=== PATIENT | female | born 1995 | race Caucasian/White ===

== ENCOUNTER 2016-10-07 23:10 | Emergency (ER) | payer BC ==
[2016-10-07] MEDS ORDERED: BENADRYL 50 MG/ML IV ONE (23:34)
[2016-10-07] MEDS ORDERED: DILAUDID 1 MG/ML INJECTION IV ONE (23:34)
[2016-10-07] MEDS ORDERED: Sodium Chloride 0.9% 1000 ML 1,000 ML IV STA (23:34)
[2016-10-07] MEDS ORDERED: BENADRYL 50 MG/ML ONE (23:45)
[2016-10-07] MEDS ORDERED: DILAUDID 1 MG/ML INJECTION ONE (23:46)
[2016-10-07] MEDS ORDERED: Sodium Chloride 0.9% 1000 ML 1,000 ML ONE (23:46)
[2016-10-07 23:47] LABS: BASOPHIL % 0.2 % (0.0-0.4); Granulocytes % 62.3 % (36.0-66.0); Lymphocytes % 29.9 % (24.0-44.0); Mean Cell Volume 88.9 fl (78-100); Mean Corpuscular Hemoglobin 29.4 pg (26-32); Monocytes % 5.6 % (0.0-12.0); Platelet Count 157 K/mm3 (150-450); Red Blood Count 4.77 M/mm3 (4.1-5.4); Red Cell Distribution Width 13.4 % (11.5-14.0); White Blood Count 11.2 K/mm3 (4.0-10.5)
[2016-10-07 23:54] LABS: COMPLETE URINE MICROSCOPIC? YES; Collection Type CLEAN CATCH
[2016-10-07 23:55] LABS: Bacteria FEW /HPF (NEGATIVE); Epithelial Cells MODERATE /HPF (FEW)
[2016-10-08 00:07] LABS: ALBUMIN 3.5 g/dL (3.4-5.0); ALKALINE PHOSPHATASE 64 U/L (46-116); ANION GAP 13.3 MEQ/L (5-15); BILIRUBIN,TOTAL 0.2 mg/dL (0.2-1.0); BLOOD UREA NITROGEN 8 mg/dL (9-20); CHLORIDE 106 mEq/L (98-107); Carbon Dioxide 25.3 mEq/L (21-32); Glucose 90 MG/DL (70-110); LIPASE 131 U/L (73-393); Potassium 3.6 mEq/L (3.5-5.1); SGOT/AST 16 U/L (15-37); SGPT/ALT 24 U/L (12-78); SODIUM 141 mEq/L (136-145); Total Protein 6.7 gm/dL (6.4-8.2)
--- NOTE | 2016-10-08 00:17 | ERPHSYRPT ---
- History of Present Illness Time Seen by Provider: 10/07/16 23:25 Historian: patient Patient Subjective Stated Complaint: STATES THAT SHE HAS RIGHT RIB PAIN TO RUQ PAIN X 1 WEEK INTERMITTENTLY BUT TONIGHT IT HAS BEEN PERSISTENT - DENIES OTHER GI SYMPTOMS BUT REPORTS FREQUENCY OF URINATION Triage Nursing Assessment: AMBULATORY TO TREATMENT AREA - STEADY GAIT - MOVES ALL EXTREMITIES WITH EQUAL STRENGTH. ALERT/ORIENTED - PLEASANT AFFECT. SKIN FLUSHED/HOT/DRY - NO RASH/INJURY. RESPS EASY - NON-LABORED Physician History: CC: abd pain Hx: 20 yo patient with right flank/abd pain. One prior episide 2 weeks ago. No investigation. Some nausea. Moderate pain. Normal urination without hematuria. No fever or chlls. Mild cough. Pain is in right upper abdomen. Did not eat today as was working at [employer]. Planned to eat tonite. Timing/Duration: today Quality: aching Severity of Pain-Max: moderate Severity of Pain-Current: moderate Allergies/Adverse Reactions: No Known Drug Allergies Allergy (Unverified 10/07/16 23:17) Hx Tetanus, Diphtheria Vaccination/Date Given: Yes Hx Influenza Vaccination/Date Given: No Hx Pneumococcal Vaccination/Date Given: No Immunizations Up to Date: Yes - Review of Systems Constitutional: No Fever, No Chills Eyes: No Symptoms Ears, Nose, & Throat: No Symptoms Respiratory: No Cough Cardiac: No Chest Pain Abdominal/Gastrointestinal: Abdominal Pain, Nausea, No Vomiting, No Diarrhea Genitourinary Symptoms: No Dysuria, No Hematuria Musculoskeletal: No Back Pain Skin: No Rash Neurological: No Headache All Other Systems: Reviewed and Negative - Past Medical History Pertinent Past Medical History: No - Past Surgical History Past Surgical History: Yes Musculoskeletal: Orthopedic Surgery Other Surgical History: RIGHT ARM REPAIR - Social History Smoking Status: Current every day smoker Exposure to second hand smoke: No Drug Use: none Patient Lives Alone: No - Female History Hx Last Menstrual Period: 2 WEEKS - Nursing Vital Signs Nursing Vital Signs: Initial Vital Signs Temperature 98.8 F Temperature Source Oral Pulse Rate 94 Respiratory Rate 16 Blood Pressure 132/91 Pain Intensity 0 - Physical Exam General Appearance: alert Eye Exam: PERRL/EOMI Ears, Nose, Throat Exam: normal ENT inspection, moist mucous membranes Neck Exam: normal inspection, non-tender, supple Respiratory Exam: normal breath sounds, lungs clear Cardiovascular Exam: regular rate/rhythm Gastrointestinal/Abdomen Exam: soft, tenderness (RUQ with positive álvarez's sign ), No distention Back Exam: normal inspection, normal range of motion Extremity Exam: normal inspection, normal range of motion Neurologic Exam: alert, oriented x 3, cooperative, sensation nml, No motor deficits Skin Exam: warm, dry, No rash SpO2 Interpretation: normal SpO2: 99 Oxygen Delivery: Room Air - Course Nursing assessment & vital signs reviewed: Yes - Radiology Exams AAS X-ray Interpretation: Reviewed by me, Negative Ordered Tests: Active Orders 24 hr Category Date Time Status Clean Catch Urine Specimen STAT Care 10/07/16 23:34 Active IV Insertion STAT Care 10/07/16 23:34 Active NPO (ED) STAT Care 10/07/16 23:34 Active OBSTR/ACUTE ABDOMEN SERIES Stat Exams 10/07/16 23:35 Taken CBC W DIFF Stat Lab 10/07/16 23:42 Completed CMP Stat Lab 10/07/16 23:42 Completed HCG QUALITATIVE,SERUM Stat Lab 10/07/16 23:42 Completed LIPASE Stat Lab 10/07/16 23:42 Completed Lactic Acid Urgent Lab 10/07/16 23:34 Completed UA W/ MICROSCOPIC Stat Lab 10/07/16 23:45 Completed Medication Summary Discontinued Medications Generic Name Dose Route Start Last Admin Trade Name Freq PRN Reason Stop Dose Admin Diphenhydramine HCl 25 mg 10/07/16 23:34 10/07/16 23:52 Benadryl 50 Mg/Ml IV 10/07/16 23:35 25 mg STAT ONE Administration Diphenhydramine HCl Confirm 10/07/16 23:45 Benadryl 50 Mg/Ml Administered 10/07/16 23:46 Dose 50 mg .ROUTE .STK-MED ONE Hydromorphone HCl 1 mg 10/07/16 23:34 10/07/16 23:52 Dilaudid 1 Mg/Ml Injection IV 10/07/16 23:35 1 mg STAT ONE Administration Hydromorphone HCl Confirm 10/07/16 23:46 Dilaudid 1 Mg/Ml Injection Administered 10/07/16 23:47 Dose 1 mg .ROUTE .STK-MED ONE Sodium Chloride 1,000 mls @ 999 mls/hr 10/07/16 23:34 10/07/16 23:52 Sodium Chloride 0.9% 1000 Ml IV 10/08/16 00:34 999 mls/hr .Q1H1M STA Administration Sodium Chloride Confirm 10/07/16 23:46 Sodium Chloride 0.9% 1000 Ml Administered 10/07/16 23:47 Dose 1,000 mls @ ud .ROUTE .STK-MED ONE Lab/Rad Data: Laboratory Result Diagrams 10/07/16 23:42 10/07/16 23:42 Laboratory Results 10/07/16 10/07/16 10/07/16 Range/Units 23:45 23:42 23:42 WBC (4.0-10.5) K/mm3 RBC (4.1-5.4) M/mm3 Hgb (12.0-16.0) gm/dl Hct (35-47) % MCV (78-100) fl MCH (26-32) pg MCHC (32-36) g/dl RDW (11.5-14.0) % Plt Count (150-450) K/mm3 MPV (6-9.5) fl Gran % (36.0-66.0) % Lymphocytes % (24.0-44.0) % Monocytes % (0.0-12.0) % Eosinophils % (0.00-5.0) % Basophils % (0.0-0.4) % Basophils # (0-0.4) Sodium 141 (136-145) mEq/L Potassium 3.6 (3.5-5.1) mEq/L Chloride 106 (98-107) mEq/L Carbon Dioxide 25.3 (21-32) mEq/L Anion Gap 13.3 (5-15) MEQ/L BUN 8 L (9-20) mg/dL Creatinine 0.96 (0.55-1.30) mg/dl Estimated GFR > 60 ML/MIN Glucose 90 (70-110) MG/DL Lactic Acid (0.4-2.0) Calcium 8.5 (8.5-10.1) mg/dL Total Bilirubin 0.2 (0.2-1.0) mg/dL AST 16 (15-37) U/L ALT 24 (12-78) U/L Alkaline Phosphatase 64 (46-116) U/L Serum Total Protein 6.7 (6.4-8.2) gm/dL Albumin 3.5 (3.4-5.0) g/dL Lipase 131 (73-393) U/L Serum , Qual NEGATIVE (Negative) Ur Collection Type CLEAN CATCH Urine Color YELLOW (YELLOW) Urine Appearance CLEAR (CLEAR) Urine pH 7.0 (5-6) Ur Specific [place] 1.010 (1.005-1.025) Urine Protein NEGATIVE (Negative) Urine Glucose (UA) NEGATIVE (NEGATIVE) mg/dL Urine Ketones NEGATIVE (NEGATIVE) Urine Nitrite NEGATIVE (NEGATIVE) Urine Bilirubin NEGATIVE (NEGATIVE) Urine Urobilinogen 0.2 (0-1) mg/dL Urine WBC (Auto) SMALL (NEGATIVE) Urine RBC (Auto) NEGATIVE (0-5) Ge/ul Urine Microscopic WBC 2-5 (0-5) /HPF Ur Epithelial Cells MODERATE (FEW) /HPF Urine Bacteria FEW (NEGATIVE) /HPF Specimen Received 10/07/16:2345 10/07/16 10/07/16 Range/Units 23:42 23:34 WBC 11.2 H (4.0-10.5) K/mm3 RBC 4.77 (4.1-5.4) M/mm3 Hgb 14.0 (12.0-16.0) gm/dl Hct 42.4 (35-47) % MCV 88.9 (78-100) fl MCH 29.4 (26-32) pg MCHC 33.0 (32-36) g/dl RDW 13.4 (11.5-14.0) % Plt Count 157 (150-450) K/mm3 MPV 12.0 H (6-9.5) fl Gran % 62.3 (36.0-66.0) % Lymphocytes % 29.9 (24.0-44.0) % Monocytes % 5.6 (0.0-12.0) % Eosinophils % 2.0 (0.00-5.0) % Basophils % 0.2 (0.0-0.4) % Basophils # 0.02 (0-0.4) Sodium (136-145) mEq/L Potassium (3.5-5.1) mEq/L Chloride (98-107) mEq/L Carbon Dioxide (21-32) mEq/L Anion Gap (5-15) MEQ/L BUN (9-20) mg/dL Creatinine (0.55-1.30) mg/dl Estimated GFR ML/MIN Glucose (70-110) MG/DL Lactic Acid 0.8 (0.4-2.0) Calcium (8.5-10.1) mg/dL Total Bilirubin (0.2-1.0) mg/dL AST (15-37) U/L ALT (12-78) U/L Alkaline Phosphatase (46-116) U/L Serum Total Protein (6.4-8.2) gm/dL Albumin (3.4-5.0) g/dL Lipase (73-393) U/L Serum , Qual (Negative) Ur Collection Type Urine Color (YELLOW) Urine Appearance (CLEAR) Urine pH (5-6) Ur Specific [place] (1.005-1.025) Urine Protein (Negative) Urine Glucose (UA) (NEGATIVE) mg/dL Urine Ketones (NEGATIVE) Urine Nitrite (NEGATIVE) Urine Bilirubin (NEGATIVE) Urine Urobilinogen (0-1) mg/dL Urine WBC (Auto) (NEGATIVE) Urine RBC (Auto) (0-5) Ge/ul Urine Microscopic WBC (0-5) /HPF Ur Epithelial Cells (FEW) /HPF Urine Bacteria (NEGATIVE) /HPF Specimen Received - Progress Progress Note: 10/08/16 00:16 This appears to be biliary colic. Will get plain xray. Discussed risk and benefits of CT. She will likely need sonogram eventually. Will check labs. 10/08/16 01:00 Pain free. Abd soft and NT. Biliary colic instr given. Will release with followup. Counseled pt/family regarding: lab results, diagnosis, need for follow-up, rad results - Departure Time of Disposition: 01:00 Departure Disposition: Home Clinical Impression: RUQ abdominal pain Condition: Stable Critical Care Time: No Referrals: FLAVIO RO [Primary Care Provider] - Instructions: Abdominal Pain-Adult, General Gallbladder Conditions Additional Instructions: [place] diet with no fatty, greasy, spicy foods. Return for worsened or changed pain, fever, recurrent vomiting or concerns. Tylenol as directed for discomfort. Rx zofran. Rx pepcid. Followup with Dr Ro Sunday or Sunday. No driving tonite. Prescriptions: Ondansetron [Zofran Odt] 4 mg PO Q6HPRN PRN #10 tab.rapdis PRN Reason: Nausea/Vomiting Famotidine 20 mg [Pepcid 20 MG] 1 tab PO BID #30 tablet
[2016-10-08 00:40] VITALS: BP 132/91; PULSE 94
[2016-10-08 01:03] VITALS: O2SAT 99
--- NOTE | 2016-10-08 09:42 | XRAY ---
Indication: Right upper quadrant pain. Comparison: None 2 views of the abdomen nonacute and nonobstructed. Solid organs and osseous structures unremarkable. Single frontal chest demonstrates normal heart, lungs, and bony thorax with a few calcified granulomas. Impression: Negative abdomen. Nonacute 1 view chest.
== END 2016-10-08 01:13 | disposition home or self-care (01) ==
LOC: ED 23:10
DX: R10.11 Right upper quadrant pain (principal); R11.0 Nausea
CPT/HCPCS: 36000; 36415; 74022; 80053; 81000; 83605; 83690; 84703; 85025; 96360; 96374; 96375; 99283; J1170; J1200

== ENCOUNTER 2016-11-27 10:17 | Day surgery (SDC) | payer BC ==
--- NOTE | 2016-11-25 14:45 | HP ---
HISTORY OF PRESENT ILLNESS: The patient is a 21 year-old, right upper quadrant pain since early October, worse with greasy and spicy foods, nausea on attack, no vomiting, no jaundice, an episode of constipation resolved now, increased frequency of bowel movements. Ultrasound showed sludge. PAST MEDICAL HISTORY: Denies chronic illnesses. MEDICATIONS: control pills. PAST SURGICAL HISTORY: She had arm surgery in the past. FAMILY HISTORY: Negative. ALLERGIES: No known drug allergies. SOCIAL HISTORY: Half a pack a day smoker, denies alcohol abuse. REVIEW OF SYSTEMS: Twelve systems reviewed, per pre-admission assessment, and questionnaire. No chest pain or palpitations. Otherwise pertinent present as noted above. PHYSICAL EXAMINATION: GENERAL: No acute distress. HEENT: Sclerae nonicteric. NECK: No JVD. CHEST: Normal excursions. Nonlabored breathing. CARDIOVASCULAR: Regular rate and rhythm. ABDOMEN: Soft, some mild tenderness right upper quadrant. No peritoneal signs. EXTREMITIES: No significant edema. NEUROLOGICAL: Alert, moving extremities grossly symmetrically, no gross motor deficits noted. IMPRESSION: Symptomatic biliary colic, symptomatic biliary sludge, probably chronic cholecystitis. [place] the patient would benefit from cholecystectomy. The risks and benefits explained in detail not limited to bleeding, infection, risk of trocar injury or hernia, small risk of bowel, bladder or blood vessel injury, small risk of bile leak, bile duct injury, retained stone or sludge possibly requiring further procedure either open or ERCP, general risk of anesthesia, DVT, PE, pneumonia, perioperative risk of aches, pains, bloating, constipation and/or loose stools, possibly chronic in nature. She understands all the above, agrees to plan of procedure. We will proceed with lap cholecystectomy, possible open as an outpatient. Pamphlet explaining the procedure in detail, but not limited to, if this failed to improve her symptoms she may need further workup, testing, endoscopy or other studies or procedures. She understands, agrees with plan of procedure. We will proceed with lap della, possible open as an outpatient. General risk of trocar injury or hernia, small risk of bile leak, bile duct injury, retained stone or sludge possibly requiring further procedures, open or ERCP.
[~2016-11-27 10:17] MED LIST: DILAUDID 2 MG INJECTION IV ONE; DIPRIVAN 200 MG/20 ML IV ONE; Decadron 4 MG INJ IV ONE; Lactated Ringers 1,000 ML IV ONE; Lactated Ringers 1,000 ML IV SCH; MEFOXIN 2 GM PREMIX** 50 ML IV ONE; Pepcid 20 MG VIAL IV ONE; Quelicin Fliptop 200 MG/10 ML IJ ONE; SUBLIMAZE 100 MCG/2 ML IV ONE; Sensorcaine 0.25% 10 ML ONE; TORAdol 30 mg Injection IJ ONE; Zemuron 100 MG/10 ML IJ ONE; Zofran 4 MG/2 ML VIAL IV ONE
[2016-11-27] MEDS ORDERED: SUBLIMAZE 100 MCG/2 ML ONE (12:17)
[2016-11-27 14:06] VITALS: BP 111/69; PULSE 70; O2SAT 99
--- NOTE | 2016-11-28 09:44 | OP ---
SURGERY DATE/TIME: 11/27/2016 1117 PREOPERATIVE DIAGNOSES: 1) Symptomatic biliary colic, 2) Symptomatic biliary gallbladder sludge. 3) Chronic cholecystitis. POSTOPERATIVE DIAGNOSES: 1) Symptomatic biliary colic, 2) Symptomatic biliary gallbladder sludge. 3) Chronic cholecystitis. PROCEDURE: Laparoscopic cholecystectomy. SURGEON: Dr. Pk Jolley. ANESTHESIA: General. ESTIMATED BLOOD LOSS: Minimal. INDICATIONS: As noted above. Risks and benefits explained in detail but not limited to and consent was obtained. DESCRIPTION OF PROCEDURE AND FINDINGS: The patient was taken to the OR. General anesthesia was induced. Abdomen prepped and draped in the usual sterile fashion. After official time out and no disagreement with planned procedure, a mid abdominal incision made. Fascia grasped and pulled upward. Veress needle inserted and tested with saline. Pneumoperitoneum accomplished insufflating opening pressure of 0-15. A 5 mm bladeless port and 11 mm bladeless port and 5 mm lens were inserted without difficulty. There was no evidence of any intra-abdominal injury secondary to trocar insertion. Two - 5 mm right upper quadrant ports were placed and a 5 mm epigastric port. The gallbladder is grasped and retracted over the edge of the liver and dissection carried posterior, lateral to anterior fashion. It took quite some time given the extensive inflammatory reaction. Slowly and carefully dissected from posterior, lateral to anterior fashion. The main cystic artery was clipped x3 and divided in the liver bed. Gallbladder slowly and carefully skeletonized until a critical view was obtained both anteriorly and posteriorly. Once this was accomplished cystic duct was then clipped x3 and divided in the usual fashion after critical view had been obtained anteriorly and posteriorly. The gallbladder slowly and carefully dissected free from its dense almost concrete attachments to the liver bed staying directly on the gallbladder wall clipping additional side branches off the cystic artery as necessary. Just prior to releasing from final attachments to the anterior edge of the liver the liver bed re-inspected. Clips noted to be in place in cystic duct and cystic artery stumps. There were no signs of any active bleeding or bile leakage. It was felt there was no benefit from drain placement. The gallbladder was released from final attachments to the anterior edge of the liver. It was pulled out the umbilical port, decompressed and pulled free and passed off. The port was replaced. Copious amount of irrigation accomplished lateral to the liver and subhepatic space irrigating until clear. The liver bed re-inspected. Clips noted to be in place in cystic duct and cystic artery stumps. There were no signs of any active bleeding or bile leakage. It was felt there was no benefit from drain placement. At this point the 10/11 port site at the umbilical area was closed under direct vision with the camera with puncture closure device #1 Vicryl. Pneumoperitoneum decompressed. The wound was irrigated out. Skin incision closed with 4-0 Vicryl. Steri-Strips and sterile dressing applied. 0.25% Marcaine local injected along the skin incision fascial defect. The patient tolerated the procedure well. There were no immediate complications. There was no family available to discuss the findings with at this time.
== END 2016-11-27 13:40 | disposition home or self-care (01) ==
LOC: SDC 10:17
PROVIDERS: ATTEND Surgery
PROC: 0FT44ZZ Resection of Gallbladder, Percutaneous Endoscopic Approach (ICD-10-PCS; principal; 2016-11-27)
DX: K80.10 Calculus of gallbladder with chronic cholecystitis without obstruction (principal); Z72.0 Tobacco use
CPT/HCPCS: 00790; 36415; 84703; 88304; J0330; J0694; J1100; J1170; J1885; J2405; J2704; J3010

== ENCOUNTER 2018-06-11 19:52 | Emergency (ER) | payer BC ==
[2018-06-11] MEDS ORDERED: XYLOCAINE 1% HCL 20 ML MDV IJ ONE (20:27)
[2018-06-11] MEDS ORDERED: BACIGUENT PACKET TP ONE (20:27)
[2018-06-11 20:29] VITALS: O2SAT 99
--- NOTE | 2018-06-11 20:31 | ERPHSYRPT ---
- History of Present Illness Time Seen by Provider: 06/11/18 20:28 Source: patient Exam Limitations: no limitations Physician History: 22-year-old white female arrives with complaint of laceration to her right anterior thigh symptoms since just prior to arrival. Patient states she was struck with a broken dish at work. She denies any other complaints. Patient does states she is . Past medical history is negative past surgical history his right arm repair Patient does not know if she is up-to-date on her tetanus. Timing/Duration: today Severity: mild Location: other (right thigh) Possible Causes: other (laceration) Associated Symptoms: denies symptoms Allergies/Adverse Reactions: No Known Drug Allergies Allergy (Verified 06/11/18 20:29) Home Medications: Vits W-Ca,Fe,FA(<1Mg) [] 1 each PO DAILY 06/11/18 [History] Hx Tetanus, Diphtheria Vaccination/Date Given: Yes Hx Influenza Vaccination/Date Given: No Hx Pneumococcal Vaccination/Date Given: No - Review of Systems Constitutional: No Fever, No Chills Eyes: No Symptoms Ears, Nose, & Throat: No Symptoms Respiratory: No Cough, No Dyspnea Cardiac: No Chest Pain, No Edema, No Syncope Abdominal/Gastrointestinal: No Abdominal Pain, No Nausea, No Vomiting, No Diarrhea Genitourinary Symptoms: (12 week ) Musculoskeletal: No Back Pain, No Neck Pain Skin: Other (2 cm laceration right anterior thigh) Neurological: No Dizziness, No Focal Weakness, No Sensory Changes Psychological: No Symptoms Endocrine: No Symptoms All Other Systems: Reviewed and Negative - Past Medical History Pertinent Past Medical History: No Neurological History: No Pertinent History ENT History: No Pertinent History Cardiac History: No Pertinent History Respiratory History: No Pertinent History Endocrine Medical History: No Pertinent History Musculoskeletal History: No Pertinent History GI Medical History: No Pertinent History History: No Pertinent History Psycho-Social History: No Pertinent History Female Reproductive Disorders: No Pertinent History - Past Surgical History Past Surgical History: Yes Neuro Surgical History: No Pertinent History Cardiac: No Pertinent History Respiratory: No Pertinent History Gastrointestinal: No Pertinent History Genitourinary: No Pertinent History Musculoskeletal: Other Female Surgical History: No Pertinent History Other Surgical History: surgery on R arm - Social History Smoking Status: Current every day smoker Exposure to second hand smoke: Yes Drug Use: none Patient Lives Alone: No - Nursing Vital Signs Nursing Vital Signs: Initial Vital Signs Temperature 98.6 F 06/11/18 20:15 Pulse Rate 87 06/11/18 20:15 Respiratory Rate 16 06/11/18 20:15 Blood Pressure 116/75 06/11/18 20:15 O2 Sat by Pulse Oximetry 99 06/11/18 20:15 Pain Scale Pain Intensity 4 - Physical Exam General Appearance: no apparent distress, alert Eye Exam: PERRL/EOMI, eyes nml inspection Ears, Nose, Throat Exam: normal ENT inspection, pharynx normal, moist mucous membranes Neck Exam: normal inspection, non-tender, supple, full range of motion Respiratory Exam: normal breath sounds, lungs clear, No respiratory distress Cardiovascular Exam: regular rate/rhythm, normal heart sounds Gastrointestinal/Abdomen Exam: soft, mass, No tenderness Back Exam: normal inspection, normal range of motion, No CVA tenderness, No vertebral tenderness Extremity Exam: normal inspection, normal range of motion Neurologic Exam: alert, oriented x 3, cooperative, senior economist II-XII nml as tested, normal mood/affect, sensation nml, No motor deficits Skin Exam: laceration (2 cm laceration right anterior thigh) SpO2 Interpretation: normal (99%) - Course Nursing assessment & vital signs reviewed: Yes Ordered Tests: Active Orders 24 hr Category Date Time Status Prepare for Sutures STAT Care 06/11/18 20:27 Active Sutures STAT Care 06/11/18 20:28 Active Wound Care STAT Care 06/11/18 20:27 Active Medication Summary Discontinued Medications Generic Name Dose Route Start Last Admin Trade Name Freq PRN Reason Stop Dose Admin Bacitracin Zinc 0.9 gm 06/11/18 20:27 Baciguent Packet TP 06/11/18 20:28 STAT ONE Bacitracin Zinc Confirm 06/11/18 20:50 Baciguent Packet Administered 06/11/18 20:51 Dose 1 gm .ROUTE .STK-MED ONE Diphtheria/Tetanus/Acell Pertussis 0.5 ml 06/11/18 20:47 Adacel Vial IM 06/11/18 20:48 .ONCE ONE Diphtheria/Tetanus/Acell Pertussis Confirm 06/11/18 20:50 Adacel Vial Administered 06/11/18 20:51 Dose 0.5 ml IM .STK-MED ONE Lidocaine HCl 5 ml 06/11/18 20:27 Xylocaine 1% Hcl 20 Ml Mdv IJ 06/11/18 20:28 STAT ONE Lidocaine HCl Confirm 06/11/18 20:50 Xylocaine 1% Hcl 20 Ml Mdv Administered 06/11/18 20:51 Dose 5 ml .ROUTE .STK-MED ONE - Progress Progress: improved Progress Note: 06/11/18 20:48 22-year-old white female arrives with complaint of laceration to her right anterior thigh secondary to a broken dish at work. Patient without any other complaints. Patient is with 12 week estimated gestational age she states she is not sure about her tetanus status. Laceration repair 2 cm right anterior thigh, Laceration sterilely prepped and draped inspect it for foreign bodies none are found, laceration anesthetized with 1% lidocaine, Laceration sutured using 3 5. 0 Ethilon sutures interrupted. Bacitracin is applied. DTaP updated. - Departure Time of Disposition: 20:49 Departure Disposition: Home Clinical Impression: Laceration of right thigh Qualifiers: Encounter type: initial encounter Qualified Code(s): S71.111A - Laceration without foreign body, right thigh, initial encounter Condition: Fair Critical Care Time: No Referrals: DRU DIAZ MD [Primary Care Provider] - Instructions: Laceration Repair With [employer] (DC) Additional Instructions: Return home. Keep area clean and dry. Bacitracin to area until healed. Sutures out in 7-10 days. Follow-up with your family doctor or return if signs of infection or problems. Return for acute distress or for severe symptoms.
[2018-06-11] MEDS ORDERED: Adacel Vial IM ONE ×2 (20:47→20:50)
[2018-06-11] MEDS ORDERED: XYLOCAINE 1% HCL 20 ML MDV ONE (20:50)
[2018-06-11] MEDS ORDERED: BACIGUENT PACKET ONE (20:50)
[2018-06-11 21:19] VITALS: BP 116/74; PULSE 74
== END 2018-06-11 21:17 | disposition home or self-care (01) ==
LOC: ED 19:52
PROC: 0HQHXZZ Repair Right Upper Leg Skin, External Approach (ICD-10-PCS; principal; 2018-06-11)
DX: S71.111A Laceration without foreign body, right thigh, initial encounter (principal); W25.XXXA Contact with sharp glass, initial encounter; Y93.G3 Activity, cooking and baking; Y92.511 Restaurant or cafe as the place of occurrence of the external cause; Y99.0 Civilian activity done for income or pay; Z33.1 Pregnant state, incidental
CPT/HCPCS: 12001; 90471; 90715; 96372; 99284; A9270-GY

== ENCOUNTER 2018-09-02 20:18 | Observation (INO) | payer BC ==
[2018-09-02 20:50] VITALS: BP 108/56; PULSE 88
[2018-09-02 21:15] LABS: Amphetamine,Urine NEGATIVE (NEGATIVE); Barbiturate,Urine NEGATIVE (NEGATIVE); Benzodiazepine,Urine NEGATIVE (NEGATIVE); Cocaine,Urine NEGATIVE (NEGATIVE); Methadone,Urine NEGATIVE (NEGATIVE); Opiate,Urine NEGATIVE (NEGATIVE); PCP,Urine NEGATIVE (NEGATIVE); THC,Urine POSITIVE (NEGATIVE)
== END 2018-09-02 21:45 | disposition home or self-care (01) ==
LOC: OB 20:18
PROVIDERS: ADMIT Family Medicine; ATTEND Family Medicine
DX: Z34.02 Encounter for supervision of normal first pregnancy, second trimester (principal)
CPT/HCPCS: 80307; 81003; G0378

== ENCOUNTER 2018-11-13 17:00 | Observation (INO) | payer BC ==
[2018-11-13 17:38] VITALS: BP 156/67; PULSE 116
[2018-11-13 17:45] LABS: Amphetamine,Urine NEGATIVE (NEGATIVE); Barbiturate,Urine NEGATIVE (NEGATIVE); Benzodiazepine,Urine NEGATIVE (NEGATIVE); Cocaine,Urine NEGATIVE (NEGATIVE); Methadone,Urine NEGATIVE (NEGATIVE); Opiate,Urine NEGATIVE (NEGATIVE); PCP,Urine NEGATIVE (NEGATIVE); THC,Urine POSITIVE (NEGATIVE)
[2018-11-13 18:10] LABS: Appearance CLEAR (CLEAR); Bilirubin NEGATIVE (NEGATIVE); Blood NEGATIVE Ery/ul (0-5); Epithelial Cells RARE /HPF (FEW); Glucose NEGATIVE (NEGATIVE); Ketones NEGATIVE (NEGATIVE); Leukocyte Esterase MODERATE (NEGATIVE); Mucus SLIGHT /HPF (NEGATIVE); Nitrite NEGATIVE (NEGATIVE); Protein,Urine Dip NEGATIVE (Negative); Urobilinogen NEGATIVE mg/dL (0-1)
[2018-11-13] MEDS ORDERED: Lactated Ringers 1,000 ML IV ONE ×4 (18:42→20:33)
[2018-11-13] MEDS ORDERED: BRETHINE 1 MG/ML SQ ONE ×2 (20:29→22:19)
[2018-11-13] MEDS ORDERED: BRETHINE 1 MG/ML ONE ×2 (20:33→22:18)
[2018-11-13] MEDS ORDERED: KEFLEX 500 MG PO ONE (21:05)
[2018-11-13] MEDS ORDERED: KEFLEX 500 MG ONE (21:08)
== END 2018-11-14 00:48 | disposition home or self-care (01) ==
LOC: OB 17:00 → UNDOADMOB 17:00 → UNDODISOB 11-14 00:48
PROVIDERS: ADMIT Family Medicine; ATTEND Family Medicine
DX: Z34.03 Encounter for supervision of normal first pregnancy, third trimester (principal)
CPT/HCPCS: 80307; 81001; 87086; G0378; A9270-GY

== ENCOUNTER 2018-12-16 02:59 | Inpatient (IN) | payer BC ==
[2018-12-17 02:24] LABS: Amphetamine,Urine NEGATIVE (NEGATIVE); Barbiturate,Urine NEGATIVE (NEGATIVE); Benzodiazepine,Urine NEGATIVE (NEGATIVE); Cocaine,Urine NEGATIVE (NEGATIVE); Methadone,Urine NEGATIVE (NEGATIVE); Opiate,Urine NEGATIVE (NEGATIVE); PCP,Urine NEGATIVE (NEGATIVE); THC,Urine POSITIVE (NEGATIVE)
[2018-12-17] MEDS ORDERED: TYLENOL EXTRA STRENGTH 500 MG PO PRN (02:57)
[2018-12-17] MEDS ORDERED: XYLOCAINE 1% HCL 20 ML MDV IJ PRN (02:57)
[2018-12-17] MEDS ORDERED: PITOCIN 30 UNITS/ LR 500 ML 500 ML IV SCH (03:00)
[2018-12-17 03:46] LABS: BASOPHIL % 0.2 % (0.0-0.4); Basophil (Absolute #) 0.02 (0-0.4); Eosinophil % 0.4 % (0.00-5.0); Eosinophil (Absolute #) 0.04 (0-0.5); Granulocyte Absolute (ANC) 7.97 (1.4-6.9); Granulocytes % 72.6 % (36.0-66.0); Hematocrit 40.4 % (35-47); Hemoglobin 13.6 gm/dl (12.0-16.0); Lymphocytes % 20.1 % (24.0-44.0); Mean Cell Volume 89.8 fl (78-100); Mean Corpuscular Hemoglobin 30.2 pg (26-32); Mean Corpuscular Hgb Concent. 33.7 g/dl (32-36); Mean Platelet Volume 12.8 fl (6-9.5); Monocyte (Absolute #) 0.73 (0.0-1.3); Monocytes % 6.7 % (0.0-12.0); Platelet Count 145 K/mm3 (150-450); Red Cell Distribution Width 14.2 % (11.5-14.0)
[2018-12-17] MEDS: Lactated Ringers 1,000 ML IV SCH ×3 (05:40→22:14)
[2018-12-17] MEDS ORDERED: Ephedrine Sulfate 50 MG/ML IV PRN (05:46)
[2018-12-17] MEDS ORDERED: Lactated Ringers 1,000 ML IV ONE ×2 (05:46→10:28)
[2018-12-17] MEDS ORDERED: OB EPIDURAL NAROPIN/SUFENTANIL IN NACL EPIDURAL PRN (05:46)
[2018-12-17] MEDS ORDERED: BICITRA 30 ML CUP PO SCH (10:15)
[2018-12-17] MEDS ORDERED: Pepcid 20 MG VIAL IV SCH (10:15)
[2018-12-17] MEDS ORDERED: Reglan 10 MG/2 ML IV SCH (10:15)
[2018-12-17 10:23] LABS: Hematocrit 39.4 % (35-47); Mean Cell Volume 91.8 fl (78-100); Mean Corpuscular Hemoglobin 30.3 pg (26-32); Mean Platelet Volume 12.5 fl (6-9.5); Platelet Count 133 K/mm3 (150-450); Red Blood Count 4.29 M/mm3 (4.1-5.4); Red Cell Distribution Width 14.4 % (11.5-14.0); White Blood Count 10.5 K/mm3 (4.0-10.5)
[2018-12-17] MEDS ORDERED: KEFZOL 1 GM ONE (10:28)
[2018-12-17] MEDS ORDERED: CEFAZOLIN 2 GM-D5W BAG** 2 GM/50 ML ML IV SCH (10:30)
[2018-12-17 10:31] LABS: INR 1.01 (0.8-3.0); PROTIME 11.7 SECONDS (9.95-12.35)
[2018-12-17 10:33] LABS: PTT 26.3 SECONDS (25.3-37.0)
[2018-12-17 11:05] LABS: ABO TYPING A; Antibody Screen NEGATIVE (NEGATIVE); RH TYPING POSITIVE
--- NOTE | 2018-12-17 12:36 | XRAY ---
Indication: Cough. Flu symptoms. Comparison: October 08, 2016. Portable chest again demonstrates normal heart and lungs. Bony thorax intact. No new/acute findings.
[2018-12-17 13:41] LABS: Appearance CLEAR (CLEAR); Bilirubin NEGATIVE (NEGATIVE); Blood MODERATE Ery/ul (0-5); Epithelial Cells RARE /HPF (FEW); Glucose NEGATIVE (NEGATIVE); Ketones SMALL (NEGATIVE); Leukocyte Esterase NEGATIVE (NEGATIVE); Mucus SLIGHT /HPF (NEGATIVE); Nitrite NEGATIVE (NEGATIVE); Protein,Urine Dip NEGATIVE (Negative); RBC 26-50 /HPF (0-2); Specific Gravity 1.008 (1.005-1.025); Urobilinogen NEGATIVE mg/dL (0-1); WBC 0-2 /HPF (0-5)
[2018-12-17] MEDS ORDERED: LANSINOH 40 GM TOP PRN (13:44)
[2018-12-17] MEDS ORDERED: Anucort-HC SUPPOSITORY PR PRN (13:44)
[2018-12-17] MEDS ORDERED: CORTISONE 1% CREAM TP PRN (13:44)
[2018-12-17] MEDS ORDERED: Dulcolax 10 MG SUPP PR PRN (13:44)
[2018-12-17] MEDS ORDERED: TUCKS TP PRN (13:44)
[2018-12-17] MEDS ORDERED: Mylicon 80MG PO PRN (13:44)
[2018-12-17] MEDS ORDERED: DEMEROL 50 MG IV PRN (13:47)
[2018-12-17] MEDS ORDERED: PERCOCET TABLET 5/325MG PO PRN (13:47)
[2018-12-17] MEDS ORDERED: Zofran 4 MG/2 ML VIAL IV PRN (13:47)
[2018-12-17] MEDS ORDERED: Nubain 10 MG/ML IV PRN (13:47)
[2018-12-17] MEDS ORDERED: Narcan 0.4 MG/ML IV PRN (13:47)
[2018-12-17] MEDS ORDERED: BENADRYL 50 MG/ML IV PRN (13:47)
[2018-12-17] MEDS ORDERED: CLARITIN 10 MG PO PRN (13:47)
[2018-12-17] MEDS ORDERED: MORPHINE SULFATE 2 MG INJ IV PRN (13:47)
[2018-12-17] MEDS ORDERED: HOLD NARCOTIC ANALGESICS AND SEDATIVES X24 HR MC PRN (13:47)
[2018-12-17 13:53] LABS: Amphetamine,Urine NEGATIVE (NEGATIVE); Barbiturate,Urine NEGATIVE (NEGATIVE); Benzodiazepine,Urine NEGATIVE (NEGATIVE); Cocaine,Urine NEGATIVE (NEGATIVE); Methadone,Urine NEGATIVE (NEGATIVE); Opiate,Urine NEGATIVE (NEGATIVE); PCP,Urine NEGATIVE (NEGATIVE); THC,Urine POSITIVE (NEGATIVE)
[2018-12-17] MEDS ORDERED: Dextrose 5%-Lr IV Solution 1000 ML 1,000 ML IV SCH (14:00)
--- NOTE | 2018-12-17 14:21 | OP ---
SURGERY DATE/TIME: 12/17/2018 1033 PREOPERATIVE DIAGNOSES: 1) Nonreassuring heart tones. 2) Term intrauterine in labor. POSTOPERATIVE DIAGNOSES: 1) Nonreassuring heart tones. 2) Term intrauterine in labor. PROCEDURE: Primary low transverse section. SURGEON: Dane Lynn M.D. ANESTHESIA: Epidural by Pk Cunningham CRNA. ESTIMATED BLOOD LOSS: 400 cc. IV FLUIDS: 2 liters of Crystalloid. URINE OUTPUT: 300 cc clear straw-colored urine. DESCRIPTION OF PROCEDURE: After informed written consent was obtained, the patient was taken to the OR. She had previously placed laboring epidural dosed for section and was prepped and draped in the usual sterile fashion. Adequate level of anesthesia was assessed and a low transverse skin incision was made by knife and carried down to the subcutaneous fat to the level of the fascia. The fascia was nicked on both sides of the midline and extended in horizontal fashion using curved Owen scissors. The superior free edge was grasped with Zackery clamps and the underlying rectus muscles were dissected free. The same was repeated inferiorly. The peritoneal cavity was opened in horizontal orientation. A bladder flap was created and then reflected over the lower uterine segment. Horizontal uterine incision was made by knife and carried down to the level of the amniotic membranes which were carefully artificially ruptured. Thin, meconium stained fluid was encountered. A viable male infant was delivered from the vertex presentation. There was a loose nuchal x1 reduced. The cord was clamped and cut then he was handed off to the awaiting nursery team after oropharynx and nares were bulb suctioned free and again he had a strong cry spontaneously upon delivery. The placenta was manually extracted and the uterus exteriorized and the uterine cavity was sponge curetted clean with lap sponge. Next, the uterine incision was closed with #1 chromic in a running locked fashion. Good closure and good hemostasis were achieved. Posterior cul-de-sac was wiped free of blood and clot. The uterus was returned to the peritoneal cavity. The lateral gutters were wiped free of blood and clot. The uterine incision was inspected and noted to have adequate closure with good hemostasis. Next, the fascia was closed with 0 Vicryl in a running fashion with good closure and good hemostasis achieved. The subcutaneous fat was irrigated with warm, sterile saline and any areas of bleeding were cauterized with electrocautery. Finally, the skin layer was closed with 4-0 undyed Vicryl in a running subcuticular fashion. Steri-Strips and occlusive dressing were placed over the incision and the patient was transferred to the recovery room in good condition.
[2018-12-17] MEDS: Colace 100 MG PO SCH (22:13)
[2018-12-18 06:04] LABS: BASOPHIL % 0.1 % (0.0-0.4); Basophil (Absolute #) 0.01 (0-0.4); Eosinophil % 0.3 % (0.00-5.0); Eosinophil (Absolute #) 0.03 (0-0.5); Granulocyte Absolute (ANC) 7.71 (1.4-6.9); Granulocytes % 69.6 % (36.0-66.0); Hematocrit 34.2 % (35-47); Hemoglobin 11.1 gm/dl (12.0-16.0); Lymphocytes % 22.6 % (24.0-44.0); Mean Cell Volume 91.9 fl (78-100); Mean Corpuscular Hemoglobin 29.8 pg (26-32); Mean Corpuscular Hgb Concent. 32.5 g/dl (32-36); Mean Platelet Volume 12.6 fl (6-9.5); Monocyte (Absolute #) 0.82 (0.0-1.3); Monocytes % 7.4 % (0.0-12.0); Platelet Count 129 K/mm3 (150-450); Red Blood Count 3.72 M/mm3 (4.1-5.4); Red Cell Distribution Width 14.4 % (11.5-14.0); White Blood Count 11.1 K/mm3 (4.0-10.5)
[2018-12-18] MEDS: MOTRIN 400 MG PO PRN ×2 (06:27→15:03)
[2018-12-18] MEDS ORDERED: Naropin 0.5% 30 ML VIAL IJ ONE (09:06)
[2018-12-18] MEDS ORDERED: Decadron 4 MG INJ IV ONE (09:06)
[2018-12-18] MEDS ORDERED: Astramorph-Pf 5 MG/10 ML IV ONE (09:06)
[2018-12-18] MEDS ORDERED: Pitocin 10 UNITS/ML IV ONE (09:06)
[2018-12-18] MEDS ORDERED: XYLOCAINE 2%/Epi 1:200000 20ML VIAL MPF IJ ONE (09:06)
[2018-12-18] MEDS ORDERED: Xylocaine-Mpf 2% 5 Ml Vial IJ ONE (09:06)
[2018-12-18] MEDS ORDERED: TORAdol 30 mg Injection IV ONE (09:06)
[2018-12-18] MEDS ORDERED: Zofran 4 MG/2 ML VIAL IV ONE (09:06)
[2018-12-18] MEDS: FERREX 150 PO SCH (10:31)
[2018-12-18] MEDS: Colace 100 MG PO SCH ×2 (10:31→21:27)
[2018-12-18] MEDS ORDERED: Adacel Vial IM ONE (11:00)
[2018-12-18] MEDS ORDERED: NORCO 5/325 MG PO PRN (13:00)
[2018-12-18] MEDS ORDERED: Ambien 10 MG PO PRN (13:44)
[2018-12-18 15:14] VITALS: O2SAT 98
[2018-12-19] MEDS: MOTRIN 400 MG PO PRN (01:58)
--- NOTE | 2018-12-19 07:30 | PCM.DS ---
Discharge Summary Date of Admission: 12/17/18 02:59 Admitting Physician: DRU DIAZ Consults: Consults on Case 12/17/18 05:47 Notify Anesthesia Provider PRN 12/17/18 10:07 Notify Anesthesia Provider ROUTINE Notify Physician OF ADMISSION 12/17/18 13:47 Notify Anesthesia Provider PRN Primary Care Provider: DRU DIAZ Allergies Allergies No Known Drug Allergies Allergy (Verified 06/11/18 20:29) Hospital Summary - Hospital Course Hospital Course: patient arrived in spont labor at term, had nonreassuring heart tones so had primary on 12/17 with no complications. she has mild lochia, pain controlled with ibuprofen. she is doing great - Vitals & Intake/Output Vital Signs: Vital Signs Temperature 98.4 F 12/19/18 01:00 Pulse Rate 65 12/19/18 01:00 Respiratory Rate 18 12/19/18 01:00 Blood Pressure 109/64 12/19/18 01:00 O2 Sat by Pulse Oximetry 98 12/18/18 17:00 Intake & Output: Intake & Output 12/16/18 12/17/18 12/18/18 12/19/18 11:59 11:59 11:59 11:59 Intake Total 1000 Output Total 200 2500 Balance -200 -1500 Weight 99.79 kg - Lab Result Diagrams: 12/18/18 05:04 - Radiology Exams Ordered Rad Exams-Entire Visit: Radiology Procedures Category Date Time Status CHEST 1 VIEW (PORTABLE) Routine Exams 12/17/18 12:11 Completed - Procedures and Test Procedures and Tests throughout Hospitalization: Therapy Orders & Screens 12/17/18 03:28 Smoking Cessation Education ONCE Comment: Diagnosis: OB CHECK Smoking Status: Current every day smoker How long have you smoked: 5 Have you smoked in the past 12 months: Yes Approximately how many cigarettes per day: 20 Do you dip or chew tobacco: No 12/17/18 10:50 Standby STAT Comment: Diagnosis: OB CHECK 12/17/18 12:24 EKG ONCE Comment: Diagnosis: OB CHECK Discharge Exam General Appearance: no apparent distress, alert Skin Exam: normal color, warm, dry Respiratory Exam: normal breath sounds, lungs clear, No respiratory distress Cardiovascular Exam: regular rate/rhythm, normal heart sounds Gastrointestinal/Abdomen Exam: soft, other (incision clean,dry, intact and well approximated), No tenderness, No mass Extremity Exam: normal inspection, normal range of motion Final Diagnosis/Problem List - Final Discharge Diagnosis/Problem (1) delivery delivered Current Visit: Yes Status: Acute Code(s): O82 - ENCOUNTER FOR DELIVERY WITHOUT INDICATION - Discharge Disposition: Home, Self-Care Condition: Stable Prescriptions: Continue Vits W-Ca,Fe,FA(<1Mg) [] 1 each PO DAILY Follow up with: DRU DIAZ MD [Primary Care Provider] - 1 Week
[2018-12-19] MEDS: FERREX 150 PO SCH (09:20)
[2018-12-19] MEDS: Colace 100 MG PO SCH (09:20)
[2018-12-19 09:42] VITALS: BP 115/73; PULSE 71
== END 2018-12-19 11:55 | disposition home or self-care (01) | DRG 788 ==
LOC: OB 02:59 → OBSVTOIN 12-17 02:59
PROVIDERS: ADMIT Family Medicine; ATTEND Family Medicine
PROC: 10D00Z1 Extraction of Products of Conception, Low, Open Approach (ICD-10-PCS; principal; 2018-12-17)
DX: O76 Abnormality in fetal heart rate and rhythm complicating labor and delivery (principal); Z3A.38 38 weeks gestation of pregnancy; Z37.0 Single live birth
CPT/HCPCS: 36415; 64488; 71045; 76937; 76942; 80307; 81001; 85025; 85027; 85610; 85730; 86850; 86900; 86901; 93005; 94799; 99140; G0378; J0690; J1100; J1885; J2274; J2405; J2590; J2795; L0625; A9270-GY